=== PATIENT | male | born 1960 | race Caucasian/White ===

== ENCOUNTER 2016-09-16 08:05 | Emergency (ER) | payer OTHER ==
[2016-09-16 08:21] VITALS: BP 146/97
--- NOTE | 2016-09-16 08:41 | UC ---
Hand/Wrist HPI - HPI Summary HPI Summary: This is a 55 yo gentleman with COPD who presents with c/o R arm pain and swelling that started spontaneously ~4d ago. Symptoms started while visiting [place]. He drove 14 hours straight to return home 09/12/16 at which point the pain and swelling became worse. He states symptoms started in the elbow, but now seem to be concentrated in the wrist and hand. He was treated for a severe MRSA infection of the LLE which requires prolonged abx and amputation on a toe on the L foot 06/2016. He denies recent fever. No known rash. No abd pain, n/ v. He reports he has been taking naproxen twice daily for the last 4 days without improvement as well as tramadol without pain relief. - History Of Current Complaint Chief Complaint: UCUpperExtremity Stated Complaint: SWOLLEN RIGHT HAND TO ELBOW - Allergies/Home Medications Allergies/Adverse Reactions: Allergies Allergy/AdvReac Type Severity Reaction Status Date / Time penicillin type med Allergy Hives/Diff. Uncoded 09/16/16 08:22 Breathing/I tching Home Medications: Home Medications Naproxen [Naprosyn 500 mg] 500 mg PO BID PRN 09/16/16 [History Confirmed ] traMADol TAB* [Ultram*] 50 mg PO Q4HR PRN 09/16/16 [History Confirmed 09/16/16] PMH/Surg Hx/FS Hx/Imm Hx Respiratory History: COPD - Surgical History Surgical History: Yes Surgery Procedure, Year, and Place: LEFT LEG ANKLE FUSION 1990, FOREARM FX( BULLETT WOUND) 1992; Left 2nd toe s/p MRSA 06/2016 - Family History Known Family History: Positive: None - Social History Alcohol Use: Occasionally Substance Use Type: Prescribed Substance Use Comment - Amount & Last Used: tramadol Smoking Status (MU): Light Every Day Tobacco Smoker Review of Systems Constitutional: Negative Skin: Negative Eyes: Negative ENT: Negative Respiratory: Negative Cardiovascular: Negative Gastrointestinal: Negative Genitourinary: Negative Motor: Decreased ROM Neurovascular: Negative Musculoskeletal: Arthralgia, Decreased ROM, Edema Neurological: Negative Psychological: Negative All Other Systems Reviewed And Are Negative: Yes Physical Exam Triage Information Reviewed: Yes Appearance: Well-Appearing Vital Signs: Initial Vital Signs Temp 98.6 F 09/16/16 08:11 Pulse 18 09/16/16 08:11 Resp 78 09/16/16 08:11 BP 146/97 09/16/16 08:11 Vital Signs Reviewed: Yes Neck: Positive: Supple, Nontender Respiratory: Positive: Chest non-tender, Lungs clear, Normal breath sounds. Negative: Crackles, Rhonchi, Stridor, Wheezing Cardiovascular: Positive: RRR, No Murmur Abdomen Description: Positive: Nontender Musculoskeletal: Positive: Other: - severe edema of R wrist and hand, pain with active ROM of fingers and wrist, no pain with passive ROM of his fingers, but significant pain with passive ROM of the wrist Neurological: Positive: Alert Skin Exam: Normal Diagnostics - Laboratory Diagnostic Studies Completed/Ordered: XR wrist - NAD, SQ swelling Hand/Wrist Course/Dx - Course Course Of Treatment: This is a 55 yo gentleman with a h/o COPD who presented with spontaneous edema and pain in his R arm which started in the elbow, but seems to be concentrated in the R wrist. XR is unremarkable. Consider gout v Lyme arthopathy. Recommend treating empirically for gout with Medrol dose lizett after failing 4 days of NSAIDs. CBC, BMP, uric acid, CRP and Lyme serology drawn today with instructions to follow up with his PCP this week to review response to treatment and lab results. - Differential Dx/Diagnosis Differential Diagnosis/HQI/PQRI: Cellulitis, Contusion, Fracture, Gout, Sprain, Strain, Tendonitis Provider Diagnoses: 1. R wrist pain and swelling - gout v Lyme Discharge - Discharge Plan Condition: Stable Disposition: HOME Prescriptions: Hydrocodone-Acetaminophen [Hydrocodone/Acetaminophen 5-325 mg] 1 tab PO Q6H #30 tab MDD 4 tabs Methylprednisolone [Medrol Dosepak 4 MG*] 4 mg PO .SEE LIZETT INSTRUCTION #1 lizett Patient Education Materials: Lyme Disease (ED), Gout (ED) Referrals: Mary Ann Garcia NP [Primary Care Provider] - 3 Days Additional Instructions: Activity: As tolerated Instructions: 1. Please follow up with your primary care provider this week to review lab results and assess response to steroid treatment 2. Take the medication as directed
--- NOTE | 2016-09-16 08:51 | RAD ---
HISTORY: Right wrist pain and swelling COMPARISONS: None VIEWS: 2, Frontal and lateral views of the right wrist FINDINGS: BONE DENSITY: Normal. BONES: There is remote posttraumatic deformity to the first metacarpal. JOINTS: There is mild osteoarthritis of the first CMC and scaphoid-trapezium articulation. ALIGNMENT: There is no dislocation. SOFT TISSUES: Unremarkable. OTHER FINDINGS: None. IMPRESSION: REMOTE TRAUMA TO THE FIRST METACARPAL. MILD OSTEOARTHRITIS. NO ACUTE OSSEOUS INJURY. IF SYMPTOMS PERSIST, RECOMMEND REPEAT IMAGING.
[2016-09-16 14:45] LABS: Hematocrit 43 % (42-52); Hemoglobin 14.4 g/dl (14.0-18.0); Mean Corpuscular HGB Conc 33 g/dl (31-36); Mean Corpuscular Hemoglobin 32 pg (27-31); Mean Corpuscular Volume 96 fL (80-94); Mean Platelet Volume 9 um3 (7.4-10.4); Red Blood Count 4.54 10^6/ul (4.0-5.4); Red Cell Distribution Width 16 % (10.5-15); White Blood Count 7.4 10^3/ul (3.5-10.8)
[2016-09-16 15:18] LABS: BUN/Creatinine Ratio 15.6 (8-20); C Reactive Protein 119.79 mg/L (< 5.00); Calcium 9.5 mg/dL (8.6-10.3); EGFR African American 135.4 (>60); EGFR Non-African American 105.3 (>60); Potassium 4.1 mmol/L (3.5-5.0); Uric Acid 6.1 mg/dL (4.4-7.6)
[2016-09-17 16:57] LABS: Lyme Disease IgG Ab WB Negative (Negative)
== END 2016-09-16 09:32 | disposition home or self-care (01) ==
LOC: UCCORT 08:05
DX: M25.531 Pain in right wrist (principal); M25.431 Effusion, right wrist; Z86.14 Personal history of Methicillin resistant Staphylococcus aureus infection; J44.9 Chronic obstructive pulmonary disease, unspecified; Z89.422 Acquired absence of other left toe(s); Z88.0 Allergy status to penicillin; Z72.0 Tobacco use
CPT/HCPCS: 36415; 80048; 84550; 85025; 86140; 86617; 99202; G0463